=== PATIENT | female | born 1955 | race Caucasian/White ===

== ENCOUNTER 2019-10-28 10:03 | Emergency (ER) | payer MEDICARE, OTHER, SELFPAY ==
[2019-10-28 10:11] VITALS: BMI 24.9
[2019-10-28 10:14] VITALS: BP 162/92; PULSE 82; RESP 18; TEMP 36.9; O2SAT 99
[2019-10-28 10:16] VITALS: BP 162/92; PULSE 86; RESP 18; O2SAT 98
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
[2019-10-28 11:13] VITALS: BP 167/90; PULSE 78; RESP 17; O2SAT 98
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
[2019-10-28 12:13] VITALS: BP 160/91; PULSE 73; RESP 16; TEMP 36.7; O2SAT 96
== END 2019-10-28 12:13 | disposition home or self-care (01) ==
PROVIDERS: Emergency Provider Nurse Practitioner Family; PCP Family Medicine
DX: S01.01XA Laceration without foreign body of scalp, initial encounter (principal); W55.22XA Struck by cow, initial encounter
CPT/HCPCS: 12002; 12345; 70450; 99281; 99283

== ENCOUNTER 2020-03-07 12:50 | Outpatient (CLI) | payer MEDICARE, OTHER, SELFPAY ==
--- NOTE | 2020-03-07 13:11 | MM_ITS ---
WS: [id number] BILATERAL SCREENING DIGITAL MAMMOGRAM WITH CAD HISTORY: SCREENING COMPARISON: 02/02/2019, 07/22/2018, 09/24/2017 Bilateral CC and MLO views submitted. Computer aided detection analyzed. Breast composition: The breasts are heterogeneously dense, which may obscure small masses. No suspici ous masses, microcalcifications or architectural distortion. No significant change in the calcificati ons upper outer quadrant of the LEFT breast. Patient did not return for six-month follow-up as indica geovanna on 02/02/2019 report. MM/[place] [id number] IMPRESSION: BI-RADS: 2-Benign FOLLOW UP: 1 Year Follow-up
== END 2020-03-07 12:51 | disposition home or self-care (01) ==
LOC: RADSHAW 12:54
PROVIDERS: PCP Family Medicine; Visit Provider Family Medicine
DX: Z12.31 Encounter for screening mammogram for malignant neoplasm of breast (principal)
CPT/HCPCS: 77067

== ENCOUNTER 2020-08-09 09:31 | Outpatient (RCR) | payer MEDICARE, OTHER, SELFPAY | END 2020-08-10 23:59 | disposition home or self-care (01) | LOC: SOT 09:31 | PROVIDERS: PCP Family Medicine; Referring Provider Orthopaedic Surgery Hand Surgery; Visit Provider Orthopaedic Surgery Hand Surgery | DX: G56.01 Carpal tunnel syndrome, right upper limb (principal) | CPT/HCPCS: 97110; 97166 ==

== ENCOUNTER 2020-08-11 06:00 | Outpatient (RCR) | payer MEDICARE, OTHER, SELFPAY | END 2020-08-28 13:31 | disposition home or self-care (01) | LOC: SOT 06:00 | PROVIDERS: PCP Family Medicine; Referring Provider Orthopaedic Surgery Hand Surgery; Visit Provider Orthopaedic Surgery Hand Surgery | DX: G56.01 Carpal tunnel syndrome, right upper limb (principal) | CPT/HCPCS: 97035; 97110; 97112; 97530 ==

== ENCOUNTER 2021-04-03 12:50 | Outpatient (CLI) | payer MEDICARE, BC, SELFPAY ==
--- NOTE | 2021-04-03 13:06 | MM_ITS ---
WS: [id number] SCREENING DIGITAL MAMMOGRAM WITH CAD HISTORY: SCREENING COMPARISON: 03/07/2020, 02/02/2019 and 03/18/2017 Bilateral CC and MLO views submitted. Computer aided detection analyzed. Breast composition: The breasts are heterogeneously dense, which may obscure small masses. Increasing cluster of heterogeneous calcifications in the upper outer LEFT breast at a posterior depth. Soft ti ssue masses in the medial and lateral RIGHT breast are stable. MM/[id number] IMPRESSION: BI-RADS: 0-Incomplete: Need additional imaging evaluation FOLLOW UP: Need Additional Imaging LEFT BREAST: Magnification views of suspicious calcification CC and MLO. Tristian Arnold
--- NOTE | 2021-04-16 15:04 | PC.NURSE ---
Called Dr. Hayes Ruiz nurse on 04/16/20. Patient is going to be scheduled to have done in [facility], [place]
== END 2021-04-03 12:51 | disposition home or self-care (01) ==
LOC: RADSHAW 12:56
PROVIDERS: PCP Family Medicine; Visit Provider Family Medicine
DX: Z12.31 Encounter for screening mammogram for malignant neoplasm of breast (principal)
CPT/HCPCS: 77067

== ENCOUNTER 2021-04-11 14:33 | Outpatient (CLI) | payer MEDICARE, BC, SELFPAY ==
--- NOTE | 2021-04-11 14:44 | MM_ITS ---
WS: [id number] LEFT DIGITAL MAMMOGRAM WITH CAD HISTORY: Additional imaging LEFT breast calcifications. COMPARISON: 04/03/2021, 03/07/2020 and 02/02/2019 Technique: Magnification views LEFT CC and MLO and true ML. Breast composition: The breasts are heterogeneously dense, which may obscure small masses. Calcifica tions are reidentified in the upper outer quadrant of the LEFT breast posteriorly. Some these calcifi cations are clustered and pleomorphic. There is a slight linear distribution with skip areas extendin g over length of 19 mm. There is an additional more coarse calcification posteriorly. No associated s oft tissue mass. MM/[place] [id number] IMPRESSION: BI-RADS: 4-Suspicious Finding-Biopsy Should Be Considered FOLLOW UP: Biopsy Recommended Stereotactic biopsy recommended of the suspicious calcifications LEFT breast. Notified Hayes Ruiz MD at 04/11/2021 3:07 PM. Office notified. Message le ft at office.
== END 2021-04-11 14:34 | disposition home or self-care (01) ==
LOC: ONCMED 14:40
PROVIDERS: PCP Family Medicine; Visit Provider Family Medicine
DX: R92.2 Inconclusive mammogram (principal)
CPT/HCPCS: 77065

== ENCOUNTER 2021-08-19 06:00 | Outpatient (RCR) | payer MEDICARE, BC, SELFPAY | END 2021-09-10 23:59 | disposition home or self-care (01) | LOC: GPT 06:00 | PROVIDERS: PCP Family Medicine; Referring Provider Family Medicine; Visit Provider Family Medicine | DX: R07.81 Pleurodynia (principal) | CPT/HCPCS: 97110; 97140; 97162; G0283 ==

== ENCOUNTER 2021-09-11 06:00 | Outpatient (RCR) | payer MEDICARE, BC, SELFPAY | END 2021-10-03 23:59 | disposition home or self-care (01) | LOC: GPT 06:00 | PROVIDERS: PCP Family Medicine; Referring Provider Family Medicine; Visit Provider Family Medicine | DX: R07.89 Other chest pain (principal); M54.59 Other low back pain | CPT/HCPCS: 97110; 97112; 97140; 97530; G0283 ==

== ENCOUNTER 2024-03-17 08:45 | Emergency (ER) | payer MEDICARE, OTHER, SELFPAY ==
[2024-03-17 09:15] VITALS: BP 121/64; PULSE 101; TEMP 36.4; O2SAT 98; BMI 21.4
--- NOTE | 2024-03-17 09:29 | ECG_ITS ---
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 Measurements Intervals [place] Rate: 94 P: 79 IA: 139 QRS: 8 QRSD: 117 T: 124 QT: 370 QTc: 464 Interpretive Statements SINUS RHYTHM POSSIBLE RIGHT ATRIAL ENLARGEMENT [0.25mV P-WAVE] LEFT ATRIAL ENLARGEMENT [-0.15mV P-WAVE IN V1/V2] POSSIBLE ANTERIOR MYOCARDIAL INFARCTION , OF INDETERMINATE AGE [30 ms Q WAVE IN V3/V4, OR R < 0.2 mV IN V4] No previous ECG available for comparison Electronically Signed On 03-17-2024 14:40:29 AUDIT REVIEWER by Regino Capone M.D. [email or web address]
[2024-03-17 10:09] LABS: Basophils % 0.5 %; Eosinophils # 0.1 10^3/uL (0.0-0.8); Eosinophils % 1.1 %; Hematocrit 43.7 % (36-47); Lymphocytes # 0.9 10^3/uL (0.8-4.8); Lymphocytes % 12.6 %; Mean Corpuscular Hemoglobin 29.9 pg (27-33); Mean Corpuscular Volume 90.9 fl (85-98); Mean Platelet Volume 9.2 fL (7.4-10.4); Monocytes # 0.5 10^3/uL (0.2-0.9); Monocytes % 7.3 %; Neutrophils # 5.79 10^3/uL (1.8-7.7); Neutrophils % 78.2 %; Nucleated Red Blood Cells % 0 %; Platelet Count 433 10^3/cmm (157-399); Red Blood Count 4.81 10^6/uL (3.85-5.65); Red Cell Distribution Width 13.2 % (12.1-15.1)
[2024-03-17 10:40] LABS: Alanine Aminotransferase 11 U/L (0-33); Albumin Level 3.9 g/dL (3.5-5.2); Alkaline Phosphatase 80 U/L (35-105); Anion Gap 13.8 (5-19); Aspartate Amino Transferase 15 U/L (0-32); Blood Urea Nitrogen 17 mg/dL (8-23); Carbon Dioxide 29 mmol/L (22-29); Chloride 98 mmol/L (98-107); Globulin 3.1 g/dL (1.3-4.6); Glucose 128 mg/dL (65-115); Osmolality Calculated 287 mOsm/kg (285-295); Potassium 3.8 mmol/L (3.5-5.1); Sodium 137 mmol/L (136-145); Total Bilirubin 0.4 mg/dL (0.15-1.2)
--- NOTE | 2024-03-17 11:57 | XRR_ITS ---
PROCEDURE INFORMATION: Exam: XR Chest Exam date and time: 03/17/2024 12:44 PM Age: 69 years old Clinical indication: Cough and dyspnea; Additional info: Dyspnea/cough TECHNIQUE: Imaging protocol: Radiologic exam of the chest. Views: 1 view. COMPARISON: CT abdomen pelvis w con* [id number] 03/17/2024 12:26 PM FINDINGS: Lungs: Left lower lung zone calcified granuloma. No consolidation. Pleural spaces: Unremarkable. No pleural effusion. No pneumothorax. Heart/Mediastinum: Unremarkable. No cardiomegaly. Bones/joints: Unremarkable. XR/XR chest 1V portable [id number] IMPRESSION: No acute findings.
--- NOTE | 2024-03-17 11:57 | CT_ITS ---
WS: [id number] CT ABDOMEN PELVIS TECHNIQUE: Contrast-enhanced CT of the abdomen and pelvis with coronal and sagittal reformatted image s. CLINICAL INFORMATION: abd pain COMPARISON: None. DLP: 328.[address] scans at [facility] use at least one of these dose optimization techniques: automated e xposure control; mA and/or kV adjustment per patient size (includes targeted exams where dose is matc hed to clinical indication); or iterative reconstruction. FINDINGS: Prior hysterectomy. Tiny fat-containing umbilical hernia. No herniated bowel. No significant indurati on or fluid collection. Lung bases are well aerated. Calcified granuloma LEFT lower lobe. Diffuse fatty infiltration of the l iver. Normal portal vein and splenic vein. Gallbladder is contracted. Normal GE junction. Splenic gra nulomas. Normal pancreatic parenchymal enhancement. Celiac and SMA are patent. Moderate aortic athero matous disease. Normal caliber abdominal aorta. Adrenal glands are normal. Normal renal parenchymal e nhancement. No hydronephrosis. Tiny RIGHT renal cyst. Urine distended bladder. Sigmoid diverticulosis. No evidence of acute diverticulitis. Normal appendix in the RIGHT lower quadrant. CT/CT abdomen pelvis w con* [id number] IMPRESSION: 1. Tiny fat-containing umbilical hernia. No herniated bowel or induration. 2. Prior hysterectomy. 3. Lobulated soft tissue thickening at the vaginal cuff may be postoperative b ut indeterminate. Recommend GENERATOR TECHNICIAN follow-up. 4. Diffuse fatty infiltration of the liver.
--- NOTE | 2024-03-17 12:00 | ED_ITS ---
HPI - General Adult 2 General: Chief complaint: Nausea/Vomiting/Diarrhea Stated complaint: n,v,dizzy,weak Time Seen by Provider: 03/17/24 09:09 History of Present Illness: 69-year-old female who presents to the e mergency room with complaints of nausea vomiting epigastric discomfort that has been going on for the last several months. She has been seen by her doctor she has had an EGD which was reported as normal she had a HIDA scan done at [place] which we got a copy it was also normal she has been seen at the [place] emergency room couple times we get those records they had no significant finding she is previously had CTs that did not show any acute abnormality. She had been started on pantoprazole Carafate she did not think either this helped and arguably may have worsened it so she stopped both of those as well she denies any hematemesis or coffee-ground emesis. She reported that whenever she talks about her constellation of symptoms she will start to gag and feel like she is going to throw up. She denies dysuria urgency or frequency. No respiratory symptoms. She denies any previous abdominal surgeries. She does not smoke or use alcohol products Associated symptoms: Deny chest pain, dyspnea or rash Related Data Home Medications Medication Instructions Recorded Confirmed lisinopril 20 1 tab PO BID 03/17/24 03/17/24 mg-hydrochlorothiazide 12.5 mg tablet ondansetron 4 mg disintegrating 4 mg PO TID PRN Nausea 03/17/24 03/17/24 tablet pantoprazole 40 mg tablet,delayed 40 mg PO DAILY 03/17/24 03/17/24 release promethazine 25 mg tablet 25 mg PO Q6H PRN Nausea 03/17/24 03/17/24 sertraline 25 mg tablet 25 mg PO DAILY 03/17/24 03/17/24 sucralfate 1 gram tablet 1 g PO QID 03/17/24 03/17/24 vilazodone 10 mg tablet 10 mg PO DAILY 03/17/24 03/17/24 Previous Rx's Medication Instructions Recorded promethazine 25 mg tablet 25 mg PO Q6H PRN nausea and 03/17/24 vomiting #20 tabs Allergies Allergy/AdvReac Type Severity Reaction Status Date / Time aspirin Allergy Unknown Verified 03/17/24 09:24 antibiotics Allergy Unknown Uncoded 03/17/24 09:24 Review of Systems 2 Const: Denies: fever(s) or chills Card: Denies: chest pain Resp: Denies: dyspnea GI: Denies: abdominal pain : Denies: dysuria, urinary frequency or urinary urgency Musc: Denies: neck pain or back pain Skin/Breast: Denies: rash Physical Exam 2 Const: COMMON NORMALS: no acute distress GENERAL APPEARANCE: cooperative and comfortable ORIENTATION/CONSCIOUSNESS: Yes awake, Yes oriented to person, Yes oriented to place and Yes oriented to time HENMT: COMMON NORMALS: normocephalic, atraumatic and hearing grossly normal bilaterally HEAD & SCALP: normocephalic and atraumatic Resp: COMMON NORMALS: normal respiratory effort, No retractions, No use of accessory muscles and clear to auscultation bilaterally AUSCULTATION: clear to auscultation bilaterally Cardio: COMMON NORMALS: regular rate, regular rhythm and No murmurs present (Cardio) RATE: regular rate RHYTHM: regular rhythm GI: COMMON NORMALS: Soft to palpation and No hepatosplenomegaly present A USCULTATION: Yes normoactive bowel sounds PALPATION: Yes Soft to palpation, No Tenderness to palpation present (GI), No Guarding due to palpation present (GI) and Yes No hepatosplenomegaly present Extremity: COMMON NORMALS: normal to inspection, capillary refill normal, no clubbing, cyanosis or edema, no calf tenderness and no pedal edema Neuro: SENSORIUM/ORIENTATION: Yes oriented to person, Yes oriented to place and Yes oriented to time Skin: COMMON NORMALS: no rashes or lesions noted GENERAL SKIN EXAM: no rashes or lesions noted Course 2 Vital Signs: Vital signs: Vital Signs Temperature 97.6 F 03/17/24 09:15 Pulse Rate 90 03/17/24 15:37 Respiratory Rate 14 03/17/24 15:37 Blood Pressure 118/66 03/17/24 15:37 Pulse Oximetry 98 03/17/24 15:37 Oxygen Delivery Me thod Room Air 03/17/24 09:15 [facility] - General Adult Medical Decision Making Patient has had chronic abdominal pain has had multiple workups she had endoscopy without significant findings she has not tolerated PPIs or Carafate well. Not finding anything acute or emergent at this time. Recommend she follow-up with GI as previously scheduled will discharge her home she has Carafate and proton pump inhibitor at home encouraged her to consider restarting those. Promethazine as needed for nausea and vomiting. Medical Records I reviewed the patient's medical records. Lab Data I reviewed the patient's lab results. 03/17/24 10:00 03/17/24 10:00 Radiology Impressions Abdomen/Pelvis CT 03/17/24 11:57 IMPRESSION: 1. Tiny fat-containing umbilical hernia. No herniated bowel or induration. 2. Prior hysterectomy. 3. Lobulated soft tissue thickening at the vaginal cuff may be postoperative but indeterminate. Recommend COUNTY HISTORIAN follow-up. 4. Diffuse fatty infiltration of the liver. Chest X-Ray 03/17/24 11:57 IMPRESSION: No acute findings. Laboratory Results WBC 7.40 10^3/uL (3.29-11.43) 03/17/24 10:00 RBC 4.81 10^6/uL (3.85-5.65) 03/17/24 10:00 Hgb 14.40 g/dL (11.27-16.99) 03/17/24 10:00 Hct 43.7 % (36-47) 03/17/24 10:00 MCV 90.9 fl (85-98) 03/17/24 10:00 MCH 29.9 pg (27-33) 03/17/24 10:00 MCHC 33.0 g/dL (30-55) 03/17/24 10:00 RDW 13.2 % (12.1-15.1) 03/17/24 10:00 Plt Count 433 10^3/cmm (157-399) H 03/17/24 10:00 MPV 9.2 fL (7.4-10.4) 03/17/24 10:00 Neut % (Auto) 78.2 % 03/17/24 10:00 Lymph % (Auto) 12.6 % 03/17/24 10:00 [place] % (Auto) 7.3 % 03/17/24 10:00 Eos % (Auto) 1.1 % 03/17/24 10:00 Baso % (Auto) 0.5 % 03/17/24 10:00 Neut # (Auto) 5.79 10^3/uL (1.8-7.7) 03/17/24 10:00 Lymph # (Auto) 0.9 10^3/uL (0.8-4.8) 03/17/24 10:00 [place] # (Auto) 0.5 10^3/uL (0.2-0.9) 03/17/24 10:00 Eos # (Auto) 0.1 10^3/uL (0.0-0.8) 03/17/24 10:00 Baso # (Auto) 0.0 10^3/uL (0.0-0.1) 03/17/24 10:00 Nucleated RBC % (auto) 0 % 03/17/24 10:00 Nucleated RBCs # 0.0 /100WBC 03/17/24 10:00 Sodium 137 mmol/L (136-145) 03/17/24 10:00 Potassium 3.8 mmol/L (3.5-5.1) 03/17/24 10:00 Chloride 98 mmol/L (98-107) 03/17/24 10:00 Carbon Dioxide 29 mmol/L (22-29) 03/17/24 10:00 Anion Gap 13.8 (5-19) 03/17/24 10:00 BUN 17 mg/dL (8-23) 03/17/24 10:00 Creatinine 1.0 mg/dL (0.5-0.9) H 03/17/24 10:00 GFR Calculation Not Reportable 03/17/24 10:00 Glucose 128 mg/dL (65-115) H 03/17/24 10:00 Calculated Osmolality 287 mOsm/kg (285-295) 03/17/24 10:00 Calcium 10.0 mg/dL (8.5-10.5) 03/17/24 10:00 Total Bilirubin 0.4 mg/dL (0.15-1.2) 03/17/24 10:00 AST 15 U/L (0-32) 03/17/24 10:00 ALT 11 U/L (0-33) 03/17/24 10:00 Alkaline Phosphatase 80 U/L (35-105) 03/17/24 10:00 Troponin T Baseline 15 ng/L (0-10) H 03/17/24 10:00 Troponin T 120 Minute 14.95 ng/L (0-10) H 03/17/24 13:29 Delta Troponin T -0.05 ABS# (0-10) L 03/17/24 13:29 Total Protein 7.0 g/dL (6.6-8.7) 03/17/24 10:00 Albumin 3.9 g/dL (3.5-5.2) 03/17/24 10:00 Globulin 3.1 g/dL (1.3-4.6) 03/17/24 10:00 Lipase 25 U/L (13-60) 03/17/24 10:00 Urine Color Yellow (Yellow) 03/17/24 14:20 Urine Appearance Clear (CLEAR) 03/17/24 14:20 Urine pH 8.0 (5-7) A 03/17/24 14:20 Ur Specific [place] 1.073 (1.005-1.030) H 03/17/24 14:20 Urine Protein Trace (Negative) A 03/17/24 14:20 Urine Glucose (UA) Negative (Normal) 03/17/24 14:20 Urine Ketones Trace (Negative) 03/17/24 14:20 Urine Blood Negative (Negative) 03/17/24 14:20 Urine Nitrate Negative (Negative) 03/17/24 14:20 Urine Bilirubin Negative (Negative) 03/17/24 14:20 Urine Urobilinogen 1.0 mg/dL (Negative) 03/17/24 14:20 Ur Leukocyte Esterase Trace (Negative) A 03/17/24 14:20 Urine RBC 3-5 /hpf (0-2) 03/17/24 14:20 Urine WBC 6-10 /hpf (0-5) 03/17/24 14:20 Ur Squamous Epith Cells 11-20 /hpf (0-5) 03/17/24 14:20 Amorphous Sediment Not Reportable 03/17/24 14:20 Urine Bacteria 1+ /hpf (NONE) H 03/17/24 14:20 Hyaline Casts 1.65 /lpf 03/17/24 14:20 All radiology interpretation(s) finalized by discharge Discharge Plan Discharge Patient Disposition: Home Clinical Impression: Chronic abdominal pain Condition: Stable Prescriptions: New promethazine 25 mg tablet 25 mg PO Q6H PRN (Reason: nausea and vomiting) Qty: 20 0RF No Action lisinopril-hydrochlorothiazide 20-12.5 mg tablet 1 tab PO BID sucralfate 1 gram tablet 1 g PO QID pantoprazole 40 mg tablet,delayed release (DR/EC) 40 mg PO DAILY promethazine 25 mg tablet 25 mg PO Q6H PRN (Reason: Nausea) sertraline 25 mg tablet 25 mg PO DAILY ondansetron 4 mg tablet,disintegrating 4 mg PO TID PRN (Reason: Nausea) vilazodone 10 mg tablet 10 mg PO DAILY Discharge Orders: Discharge ED (Routine); Ordered 03/17/24 Ordered By: Miguelito Nuñez Referrals: Hayes Ruiz MD [Primary Care Provider] - Patient Instructions: Abdominal Pain (ED), Opioid Safety, Pain Management Activity Restrictions/Additional Instructions: Thank you for choosing [facility] for your healthcare needs today. It is very important that you follow up as instructed or that you return to the Emergency Department should you have concerns or if your condition changes or worsens in any way. You are seen in the emergency room with complaint of persistent chronic abdominal pain. We did review records from [place] including your HIDA scan and previous CTs. Labs and CT imaging done today did not show any acute findings. Strongly recommend that you keep your appointment with gastroenterology. While no emergent findings were noted today suspect you do need more specialized workup to help find the cause and treatment options for the chronic abdominal pain you have been having the last several months. Coding Level of Care Code ED Paraprofessional Education Assistant for Laura Cuellar
--- NOTE | 2024-03-17 12:11 | PC.PHAR ---
Pt states stopped taking all medications except BP med Lisinopril-Hydrochlorothiazide 10-12.5 twice daily. Pt states even stopped taking Protonix 40mg daily one week ago. Pt states all the medications hurt her stomach too bad. Pt took BP med yesterday. I did add all current medications into chart with fill dates and days supply, in pharmacy notes, regardless.
[2024-03-17 12:20] VITALS: BP 103/70; BP 126/66; BP 128/68; PULSE 82; PULSE 83; PULSE 88
[2024-03-17] MEDS: iohexol 350 mg/mL 500 mL Btl (per mL) IV (12:32)
[2024-03-17 12:34] LABS: Troponin(5th) Baseline 15 ng/L (0-10)
[2024-03-17 12:39] LABS: Lipase 25 U/L (13-60)
[2024-03-17 12:53] VITALS: BP 116/59; PULSE 81; O2SAT 100
[2024-03-17] MEDS: ondansetron 2 mg/ML SDV 2 mL 4 MG IVP (12:55)
--- NOTE | 2024-03-17 13:58 | ECG_ITS ---
[facility] Pat Name: Patria Zavala Department: Room: Gender: Female Estate [employer]: : [id number] Requested By: Miguelito Almeida Order Number: [id number] Faith MD: Regino Capone M.D. Measurements Intervals [place] Rate: 72 P: 73 AL: 152 QRS: 8 QRSD: 126 T: 103 QT: 419 QTc: 459 Interpretive Statements SINUS RHYTHM POSSIBLE LEFT ATRIAL ENLARGEMENT [-0.1mV P-WAVE IN V1/V2] LEFT BUNDLE BRANCH BLOCK [120+ ms QRS DURATION, 80+ ms Q/S IN V1/V2, 85+ ms R IN I/aVL/V5/V6] Compared to ECG 03/17/2024 09:29:42 Left bundle-branch block now present Myocardial infarct finding no longer present Electronically Signed On 03-17-2024 14:44:04 PLE[employer] HAND by Regino Capone M.D. [email or web address]
[2024-03-17 14:00] VITALS: BP 158/79; PULSE 82; O2SAT 97
[2024-03-17 14:16] LABS: Troponin 5 2HR 14.95 ng/L (0-10)
[2024-03-17 14:20] LABS: Troponin 5 2HR Delta -0.05 ABS# (0-10)
[2024-03-17 14:36] LABS: Bilirubin Urine Negative (Negative); Blood Urine Negative (Negative); Glucose Urine UA Negative (Normal); Ketones Urine Trace (Negative); Leukocyte Esterase Urine Trace (Negative); Nitrate Urine Negative (Negative); Protein Urine Trace (Negative); Urine Appearance Clear (CLEAR); Urine Color Yellow (Yellow)
[2024-03-17 14:40] LABS: Specific Gravity, Urine 1.073 (1.005-1.030)
[2024-03-17 14:41] LABS: Add Urine Microscopic? YES; Bacteria Urine 1+ /hpf; Hyaline Casts Urine 1.65 /lpf
[2024-03-17 15:09] LABS: UA Slide Review UA Slide Review Perf
[2024-03-17 15:10] LABS: Add Urine Culture? No
[2024-03-17 15:37] VITALS: BP 118/66; PULSE 90; RESP 14; O2SAT 98
[2024-03-19 04:40] LABS: Lyme AB Screen <0.90 index
[2024-03-21 16:45] LABS: E. Chaffeensis AB IGG <1:64; E. Chaffeensis AB IGM <1:20
[2024-03-22 16:10] LABS: RMSF IGG NOT DETECTED; RMSF IGM NOT DETECTED
== END 2024-03-17 15:39 | disposition home or self-care (01) ==
PROVIDERS: Emergency Provider Family Medicine; PCP Family Medicine
DX: R10.13 Epigastric pain (principal)
CPT/HCPCS: 36415; 71045; 74177; 80053; 81001; 83690; 84484; 85025; 86618; 86666; 86757; 93005; 96374; 99285; J2405